=== PATIENT | female | born 1995 | race Caucasian/White ===

== ENCOUNTER 2018-01-19 17:20 | Emergency (ER) | payer OTHER ==
[2018-01-19] MEDS ORDERED: LORazepam 1 MG Tab PO ONE (18:05)
[2018-01-19] MEDS ORDERED: Metoprolol Succinate 50 MG Tab.ER PO ONE (18:24)
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
[2018-01-19 19:31] LABS: ACETAMINOPHEN 0 ug/mL (10-30)
== END 2018-01-19 20:16 ==
LOC: JD.ED 17:20
DX: F32.9 Major depressive disorder, single episode, unspecified (principal); R45.851 Suicidal ideations
CPT/HCPCS: 36415; 80053; 80306; 81001; 84443; 84703; 85025; 93005; 99285; A9270; G0480